=== PATIENT | male | born 1985 | race Caucasian/White ===

== ENCOUNTER 2019-06-02 09:25 | Emergency (ER) | payer SELFPAY ==
[~2019-06-02] VITALS: Ht 182.9 cm; Wt 118.1 kg
[2019-06-02 09:31] VITALS: BP 148/87
--- NOTE | 2019-06-02 09:37 | NUR ---
PT AMBULATED TO LOBBY AT THIS TIME, VSS. HEART RRR, CAP REFIL <2 SEC, NO EDEMA PRESENT, NO SOB.
--- NOTE | 2019-06-02 10:26 | NUR ---
PT TO ER BED 5
--- NOTE | 2019-06-02 10:40 | NUR ---
C/O L SIDED UPPER BACK/SHOULDER PAIN RADIATING TO L CHEST 04/16 & SHARP X 1 WEEK. PT DENIES INJURY, BUT STATES " I AM A TUMOR REGISTRAR AND MAY HAVE MOVED A PT WRONG THAT I DON'T KNOW OF". PT DENIES N/V. PT SPEAKING IN CLEAR/COMPLETE SENTENCES, SKIN COOL & DRY. NSR, O2 SAT 98% RA. BED IN LOW POSITION, SIDE RAIL UP X1
--- NOTE | 2019-06-02 10:48 | NUR ---
Dr. Hurt evaluating patient at bedside.
[2019-06-02] MEDS ORDERED: KETOROLAC 60 MG/2 ML VIAL IM ONE (10:55)
--- NOTE | 2019-06-02 11:07 | NUR ---
Patient taken to XRAY via wheelchair by tech.
--- NOTE | 2019-06-02 11:45 | NUR ---
Dr. Hurt re-evaluating patient at bedside.
--- NOTE | 2019-06-02 11:49 | NUR ---
Patient discharged with v/s stable. Written and verbal after care instructions given and explained. Patient alert, oriented and verbalized understanding of instructions. Ambulatory with steady gait. All questions addressed prior to discharge. ID band removed. Patient advised to follow up with PMD. Rx of NAPROSYN & VALIUM given. Patient educated on indication of medication including possible reaction and side effects. Opportunity to ask questions provided and answered.
[2019-06-02 11:50] VITALS: BP 140/81
== END 2019-06-02 11:49 | disposition home or self-care (01) ==
LOC: MED 09:25
DX: S29.011A Strain of muscle and tendon of front wall of thorax, initial encounter (principal); M54.6 Pain in thoracic spine; Z98.890 Other specified postprocedural states; X50.0XXA Overexertion from strenuous movement or load, initial encounter; Y92.89 Other specified places as the place of occurrence of the external cause; Y93.89 Activity, other specified; Y99.8 Other external cause status
CPT/HCPCS: 71046; 93005; 96372; 99283; J1885